=== PATIENT | female | born 1955 | race Caucasian/White ===

== ENCOUNTER → 2016-08-21 | Day surgery (SDC) | payer MEDICARE, MEDICAID ==
[~2016-08-21] MED LIST: BUPIVACAINE/EPINEPHRINE 0.5% 50 ML VIAL ONE; LACTATED RINGER'S 1000 ML INJ 1,000 ML ONE; LIDOCAINE 1%/EPINEPHrine 1:100,000 SOLN 20 ML VIAL ONE; MIDAZOLAM HCL 2 MG/2 ML VIAL ONE; NEOMYCIN/POLYMYXIN/BACITRACIN OINT 15 GM TUBE ONE; PNEU13P IM; PROPOFOL 200 MG/20 ML AMP IV ONE; ZITH250T PO; ZOSTINJ SQ
--- NOTE | 2016-08-21 12:52 | TN ---
cc: ALEYDA JACOBS M.D. DATE OF SURGERY: 08/21/2016 PREOPERATIVE DIAGNOSIS Right posterior thigh mass 1.5 cm. POSTOPERATIVE DIAGNOSIS Right posterior thigh mass 1.5 cm. PROCEDURE Excision of right posterior thigh mass. ANESTHESIA TIVA. SURGEON Dr. Jacobs. INDICATION This is a pleasant 60-year-old female who was noted to have a growing mass in the posterior thigh near an area where I took a lipoma out a few years back. Plans were made for above. PROCEDURE The patient was taken to the operating room and placed in the supine position. After anesthesia she was placed in the decubitus position exposing the area in question. We prepped the area with Betadine after under anesthesia. We had previously marked the area. We make an elliptical incision incorporating the old scar and the mass that had been marked. We make elliptical incision measuring 3 x 1 cm to completely remove the area in question and the scar from the previous surgery. The specimen is then passed off the field. Some other lipomatous tissue is palpated. The firm mass like structure appears to be calcified fat necrosis. After the area was cleaned we elevated the old scar as it was at a slight indentation, elevated this for closure to the medial aspect of the portion of the wound. The deep layer was then closed with a 3-0 Vicryl and skin is reapproximated with running 4-0 Vicryl. Steri-Strips were applied. Sterile bandage was applied. The patient tolerated the procedure well and had no immediate postop complications. MD BOOM Montalvo/TIFFANY /12:38 PM /12:44 PM
== END | disposition home or self-care (01) ==
LOC: ESDC 09:33
PROVIDERS: ATTEND Surgery
DX: R22.41 Localized swelling, mass and lump, right lower limb (principal)
CPT/HCPCS: 00400; 11402; 88305; J2250; J3010; J7120

== ENCOUNTER 2017-01-29 19:16 | Emergency (ER) | payer MEDICARE, MEDICAID ==
[~2017-01-29] VITALS: Ht 152.4 cm; Wt 61.8 kg
[~2017-01-29 19:16] MED LIST changes: -BUPIVACAINE/EPINEPHRINE 0.5% 50 ML VIAL ONE; -LACTATED RINGER'S 1000 ML INJ 1,000 ML ONE; -LIDOCAINE 1%/EPINEPHrine 1:100,000 SOLN 20 ML VIAL ONE; -MIDAZOLAM HCL 2 MG/2 ML VIAL ONE; -NEOMYCIN/POLYMYXIN/BACITRACIN OINT 15 GM TUBE ONE; -PROPOFOL 200 MG/20 ML AMP IV ONE
[2017-01-29 19:27] VITALS: BP 141/67; PULSE 80; RESP 16; TEMP 98.2; O2SAT 98
[2017-01-29] MEDS ORDERED: LISI10TA3 PO (19:41)
--- NOTE | 2017-01-29 19:42 | PD ---
HPI Chief Complaint: Pain: Acute or Chronic Time Seen by Provider: 19:39 Travel History International Travel<30 days: No Contact w/Intl Traveler<30days: No Traveled to known affect area: No History of Present Illness HPI 61-year-old female here for evaluation of a fracture of left distal radius that occurred in October this year. She was seen by the [facility] and diagnosed with a nonhealing radius fracture and referred to orthopedics for further treatment. She is concerned because she has limited range of motion of left forearm but denies numbness, tingling of the arm, altered sensation, or pain. She is having trouble getting an appointment with orthopedics but has been referred. 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 SKIN: Focused skin assessment warm/dry. HEAD: Normocephalic. EYES: No scleral icterus. No injection or drainage. NECK: Supple, trachea midline. No JVD or lymphadenopathy. GASTROINTESTINAL: Abdomen soft, non-tender, nondistended. MUSCULOSKELETAL: No cyanosis, or edema. Left arm: No tenderness to palpation of any portion of the arm and wrist. No edema or ecchymosis noted. Patient neurovascularly intact. BACK: Nontender without obvious deformity. No CVA tenderness. Data Data Last Documented VS Vital Signs Date Time Temp Pulse Resp B/P (MAP) Pulse Ox O2 Delivery O2 Flow Rate FiO2 01/29/17 19:27 98.2 80 16 141/67 (91) 98 MDM Medical Decision Making Medical Screen Exam Complete: Yes Emergency Medical Condition: No Differential Diagnosis Delayed healing Left wrist fracture Narrative Course 61-year-old female here for evaluation of her left wrist. States that she has been seen by [facility] but is having hard time getting into or through. He is concerned that there is something wrong with her wrist and this is why she came to the emergency department today. Physical exam revealed left elbow and wrist without deformities, crepitus, neurovascularly intact, denies pain with movement. Motor 5 out of 5. DTRs intact. She states that she does not have any pain with a physical exam and is only concerned that she cannot externally rotate her forearm as much as her right, otherwise has full range of motion of her left wrist and forearm. I explained to her in depth that she needs to see an hedis specialist for evaluation and treatment of her wrist and that we would not be up to do anything further for her today. A medical screening exam was performed: At the time of evaluation the presenting medical condition was determined not to be of an emergent nature. The patient was given the option of receiving additional care, but declined. Patient was given options for additional community resources from which to obtain care. The Patient Has Been advised to seek medical attention for their presenting complaint. The patient has been advised to return to the ER at any time if an emergent condition develops. Diagnosis Primary Impression: Encounter for medical screening examination Disposition: 01 DISCHARGE HOME Condition: Stable Brandie Rahman Jan 29, 2017 19:42
== END 2017-01-29 19:52 | disposition left against medical advice (07) ==
LOC: PHEFT 19:16
DX: S52.92XA Unspecified fracture of left forearm, initial encounter for closed fracture (principal); X58.XXXA Exposure to other specified factors, initial encounter
CPT/HCPCS: 99281

== ENCOUNTER 2018-04-08 19:18 | Observation (INO) ==
--- NOTE | 2018-04-08 19:31 | ED ---
HPI General Chief Complaint: Chest Pain Stated Complaint: Chest Pain Time Seen by Provider: 04/08/18 19:26 Source: patient Mode of arrival: ambulatory Limitations: no limitations History of Present Illness HPI narrative: 62-year-old female presents to the emergency department by private transportation for complaint of left-sided chest pain with achiness and heaviness. Patient states pain is severe 9/10 in intensity. Patient reports pain began approximately 4 PM. Patient states that she was sitting on the couch with onset of pain and applied a heating pad with some minimal relief she believes and took 2 full-strength aspirin at 5 PM. Patient states while she was on the couch she did fall asleep for a brief period of time and upon awakening noticed that the discomfort had lessened but was still present and then returned to 9/10 in intensity. No referred neck jaw back shoulder arm pain. Patient states that she has had discomfort in her back however since lifting heavy trash cans 2 days ago and felt that she wrenched her back at that time. Patient has had some shortness of breath no nausea no vomiting has episodic sweating associated with menopause. Patient does not report any abdominal pain or mid scapular pain or tearing pain. MD complaint: Reports chest pain STEMI Alert: No Onset (ago): hour(s) Time: 16:00 Duration: constant Onset: during rest and awoke with symptoms Pain location: Reports left chest Severity: severe Severity scale (1-10): 9 Quality: Reports tightness and aching Pain radiation: Reports none Relieving factors: nothing (except thinks heating pad may have helped briefly) Exacerbating factors: nothing Context: Reports trauma/injury (I wrenched my back lifting trash cans 2 days ago ); Denies recent illness, recent surgery, recent immobilization and recent travel Associated symptoms: Denies nausea, vomiting, diaphoresis, dyspnea, sense of impending doom, syncope, palpitations, fever, cough and leg swelling Treatments prior to arrival chest pain: Reports aspirin (650mg) Related Data On Oral Contraceptives: No Home Medications Medication Instructions Recorded Confirmed aspirin 162 mg PO DAILY 04/08/18 04/08/18 lisinopril 10 mg PO DAILY 04/08/18 04/08/18 Allergies Allergy/AdvReac Type Severity Reaction Status Date / Time naproxen AdvReac Severe Abdominal Verified 04/08/18 20:00 Pain Review of Systems ROS: all other systems reviewed are negative PMFSH History History Provided By: Patient (Hypertension abnormal EKG negative stress test 4 years ago) Social History Social History Substance History: No History of Abuse Smoking Status: Never smoker How Often Do You Have a Drink Containing Alcohol: 2 to 3 times a week Recent Travel in [facility] within the Last 8 Weeks: No Recent Out of Country Travel within the Last 8 Weeks: No Exam Narrative Exam Narrative: GENERAL: Well-nourished, well-developed patient. SKIN: Focused skin assessment warm/dry. HEAD: Normocephalic. EYES: No scleral icterus. No injection or drainage. NECK: Supple, trachea midline. No JVD or lymphadenopathy. CARDIOVASCULAR: Regular rate and rhythm without murmurs, gallops, or rubs. Radial dorsalis pedis pulses 2+ to palpation bilaterally. RESPIRATORY: Breath sounds equal bilaterally. No accessory muscle use. GASTROINTESTINAL: Abdomen soft, non-tender, nondistended. MUSCULOSKELETAL: No cyanosis, or edema. BACK: Nontender without obvious deformity. No CVA tenderness. Course Initial Documented Vital Signs Temperature 98.5 F 04/08/18 19:20 Pulse Rate 92 H 04/08/18 19:20 Respiratory Rate 22 04/08/18 19:20 Blood Pressure 180/90 H 04/08/18 19:20 Pulse Oximetry 98 04/08/18 19:20 Last Documented Vital Signs Temperature 98.5 F 04/08/18 19:20 Pulse Rate 78 04/08/18 21:02 Respiratory Rate 16 04/08/18 21:02 Blood Pressure 117/62 04/08/18 21:02 Pulse Oximetry 99 04/08/18 21:02 Medical Decision Making MDM Narrative Medical decision making narrative: 62-year-old female presents to the emergency room with heaviness in the left chest 9/10 intensity that worsens with deep inspiratory effort and some shortness of breath but does not report any specific sharp stabbing or grabbing pain complains of heavy onset after lifting heavy trash cans and wrenching his back no referred pain into her back. IV access obtained patient placed on security monitor with continuous pulse oximetry IV access obtained and specimens collected and sent for resulting patient has already taken aspirin and will be given nitroglycerin. At 8 PM after sublingual nitroglycerin heavy aching chest pain 9/10 in intensity has resolved and 0/10 in the sharp grabbing/stabbing chest pain 9/10 intensity has decreased to 4-5/10 in intensity and mostly noted only with deep breathing or twisting. Discussed with patient administering Toradol 30 mg IV but noted that she reported an allergy of abdominal discomfort or upset with Naprosyn. Patient states she is able to take ibuprofen/Advil/Motrin without adverse reaction. Patient also reports that at 8 AM today she took Aleve and had no adverse reaction. Patient was given Protonix 40 mg IV protectively as well as a one-time dose of Toradol 30 mg IV x1 dose. Patient is agreeable to this. D-dimer added to patient's regimen of medication as she now states that she has no personal history of clotting disorder but that her daughter does have history of blood clots. Troponin I is less than 0.02, not elevated At 850PM in view of pleuritic nature of the patient's sharp stabbing pain with movement or deep respiratory effort and family history of coagulopathy and elevated d-dimer will proceed with CTA pulmonary study to evaluate for PE. 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 This information has been shared with the patient. Patient rates her discomfort /pain sharp discomfort/pain 0/10 in intensity. Patient did receive a total of 3 sublingual nitroglycerin which resolved her dull discomfort and Toradol 30 mg IV which resolved her sharp stabbing discomfort. Plan will be to admit patient for serial cardiac enzymes and for further investigation of possible aortitis. Sed rate added at this time to patient's blood work. Call placed to medicine service for admission. Patient is aware of plan for admission and is agreeable. Discussed patient with Dr. Szymanski who will admit obvious admission to telemetry to [place] will enter orders. Discussed with Dr. 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 In view of infiltrate we will add lactic acid and blood cultures. Medical Screen Exam Complete: Yes Emergency Medical Condition: Yes Differential Diagnosis Differential Diagnosis: Chest pain, atypical chest pain, ACS, SD, aortic dissection, hypertensive urgency, PE, muscular skeletal pain Medical Records Medical records reviewed: Yes I reviewed the patient's medical records. Lab Data Result diagrams: 04/08/18 19:30 04/08/18 19:30 Lab Results 04/08/18 04/08/18 04/08/18 Range/Units 19:30 19:30 19:30 CBC w Diff Slide review pending WBC 8.6 (4.0-11.0) th/mm3 RBC 5.02 (4.00-5.30) mil/mm3 Hgb 14.6 (11.6-15.3) gm/dL Hct 44.1 (35.0-46.0) % MCV 87.8 (80.0-100.0) fL MCH 29.1 (27.0-34.0) pg MCHC 33.1 (32.0-36.0) % RDW 12.6 (11.6-17.2) % Plt Count 198 (150-450) th/mm3 MPV 8.0 (7.0-11.0) fL WBC Differential Manual diff final Seg Neuts % (Manual) 36 (16-70) % Lymphocytes % (Manual) 39 (9-44) % Monocytes % (Manual) 20 H (0-8) % Eosinophils % (Manual) 5 H (0-4) % Abs Neuts (Manual) 3.1 (1.8-7.7) th/mm3 Differential Comment . Platelet Estimate Normal (Normal) Platelet Morphology Normal (Normal) PT 9.8 (9.8-11.6) sec INR 1.0 Ratio APTT 28.7 (23.4-31.7) sec D-Dimer Quant (PE/DVT) (0.00-0.50) mg/L FEU Sodium 137 (136-145) meq/L Potassium 3.7 (3.5-5.1) meq/L Chloride 104 (98-107) meq/L Carbon Dioxide 23.9 (21.0-32.0) meq/L Anion Gap 9 (5-15) meq/L BUN 17 (7-18) mg/dL Creatinine 0.67 (0.50-1.00) mg/dL Estimated GFR 89 (>89) mL/min Random Glucose 120 H (74-106) mg/dL Calcium 8.3 L (8.5-10.1) mg/dL Magnesium (1.5-2.5) mg/dL Total Bilirubin 0.3 (0.2-1.0) mg/dL AST 22 (15-37) U/L ALT 20 (10-53) U/L Alkaline Phosphatase 109 (45-117) U/L Total Creatine Kinase (26-192) U/L Troponin I Less than 0.02 L (0.02-0.05) ng/mL Total Protein 7.9 (6.4-8.2) g/dL Albumin 3.5 (3.4-5.0) g/dL Lipase 161 (73-393) U/L 04/08/18 04/08/18 Range/Units 19:30 19:30 CBC w Diff WBC (4.0-11.0) th/mm3 RBC (4.00-5.30) mil/mm3 Hgb (11.6-15.3) gm/dL Hct (35.0-46.0) % MCV (80.0-100.0) fL MCH (27.0-34.0) pg MCHC (32.0-36.0) % RDW (11.6-17.2) % Plt Count (150-450) th/mm3 MPV (7.0-11.0) fL WBC Differential Seg Neuts % (Manual) (16-70) % Lymphocytes % (Manual) (9-44) % Monocytes % (Manual) (0-8) % Eosinophils % (Manual) (0-4) % Abs Neuts (Manual) (1.8-7.7) th/mm3 Differential Comment Platelet Estimate (Normal) Platelet Morphology (Normal) PT (9.8-11.6) sec INR Ratio APTT (23.4-31.7) sec D-Dimer Quant (PE/DVT) 0.68 H (0.00-0.50) mg/L FEU Sodium (136-145) meq/L Potassium (3.5-5.1) meq/L Chloride (98-107) meq/L Carbon Dioxide (21.0-32.0) meq/L Anion Gap (5-15) meq/L BUN (7-18) mg/dL Creatinine (0.50-1.00) mg/dL Estimated GFR (>89) mL/min Random Glucose (74-106) mg/dL Calcium (8.5-10.1) mg/dL Magnesium 2.4 (1.5-2.5) mg/dL Total Bilirubin (0.2-1.0) mg/dL AST (15-37) U/L ALT (10-53) U/L Alkaline Phosphatase (45-117) U/L Total Creatine Kinase 34 (26-192) U/L Troponin I (0.02-0.05) ng/mL Total Protein (6.4-8.2) g/dL Albumin (3.4-5.0) g/dL Lipase (73-393) U/L Imaging Data Radiologist's impression: Chest X-Ray 04/08/18 19:26 CONCLUSION: No acute cardiopulmonary disease. Chest CTA 04/08/18 20:52 CONCLUSION: 1. No pulmonary emboli. 2. Mild eccentric wall thickening involving the proximal descending aorta without aneurysmal change or dissection. 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 3. Left lower lobe infiltrate with tiny left effusion. 4. Small cluster of nonspecific pulmonary nodules involving the right lower lobe. Current Fleischner guidelines would suggest a follow-up CT of the thorax in 6-12 months. ECG Data EKG Prior to Arrival: No Attestation: I personally reviewed and interpreted this ECG as follows: (EKG: Normal sinus rhythm rate 92 poor R wave anteriorly with Q waves noted inferiorly age-indeterminate no noted ST elevation) Discharge Plan Discharge Disposition Patient Disposition: ED Admit(ED Internal Use Only) Discharge Order Discharge Orders: ED Use Only Admit Order (Routine); Ordered 04/08/18 Ordered By: Iovnne Cao Discharge Details Diagnosis: Chest pain, Aortitis, Infiltrate of lower lobe of left lung present on imaging study, Pulmonary nodule Physicians Team ED Provider: Ivonne Cao Primary Care Provider: UNKNOWN, Rxs /Orders / Referrals /Forms Prescriptions: No Action lisinopril 10 mg Tablet 10 mg PO DAILY RF: 0 aspirin 81 mg Tablet,Chewable 162 mg PO DAILY RF: 0 Discharge Instructions Patient Printed Instructions: Chest Pain (ED) Discharge Interventions Interventions: Vital Signs Last Done: 04/08/18 19:23 Status ED Status: With Doctor
[2018-04-08 19:40] LABS: Hematocrit 44.1 % (35.0-46.0); Hemoglobin 14.6 gm/dL (11.6-15.3); Mean Corpuscular HGB Conc 33.1 % (32.0-36.0); Mean Corpuscular Hemoglobin 29.1 pg (27.0-34.0); Mean Corpuscular Volume 87.8 fL (80.0-100.0); Platelet Count 198 th/mm3 (150-450); Red Blood Count 5.02 mil/mm3 (4.00-5.30); Red Cell Distribution Width 12.6 % (11.6-17.2); White Blood Count 8.6 th/mm3 (4.0-11.0)
[2018-04-08 19:46] LABS: Chloride 104 meq/L (98-107); Potassium 3.7 meq/L (3.5-5.1); Sodium 137 meq/L (136-145)
--- NOTE | 2018-04-08 19:47 | XR ---
EXAM DATE: 04/08/2018 7:42 PM EST AGE/SEX: 62 years / Female INDICATIONS: Short of breath, chest pain. CLINICAL DATA: This is the patient's initial encounter. Patient reports that signs and symptoms have been present for 1 day and indicates a pain score of 5/10. MEDICAL/SURGICAL HISTORY: None. None. COMPARISON: No prior exams available for comparison. FINDINGS: A single AP view of the chest demonstrates the lungs to be symmetrically aerated without evidence of mass, infiltrate or effusion. The cardiomediastinal contours are unremarkable. Osseous structures a re intact. Scoliotic curvature. CONCLUSION: No acute cardiopulmonary disease. Electronically signed by: Sanford Mills MD Board Certified Radiologist 04/08/2018 7:45 PM EST
[2018-04-08 19:49] LABS: Albumin 3.5 g/dL (3.4-5.0); Anion Gap 9 meq/L (5-15); Calcium 8.3 mg/dL (8.5-10.1); Carbon Dioxide 23.9 meq/L (21.0-32.0); Lipase 161 U/L (73-393)
[2018-04-08 19:50] LABS: Blood Urea Nitrogen 17 mg/dL (7-18); Glucose,Random 120 mg/dL (74-106); Magnesium 2.4 mg/dL (1.5-2.5)
[2018-04-08 19:53] LABS: Alanine Aminotransferase 20 U/L (10-53); Aspartate Aminotransferase 22 U/L (15-37); Glomerular Filtration Rate 89 mL/min (>89)
[2018-04-08 19:54] LABS: Total Protein 7.9 g/dL (6.4-8.2)
[2018-04-08 19:55] LABS: Alkaline Phosphatase 109 U/L (45-117)
[2018-04-08] MEDS ORDERED: Ketorolac Inj 30 MG/ML (IVP) Vial IV.PUSH ONE (20:06)
[2018-04-08] MEDS ORDERED: Pantoprazole Inj 40 MG Vial IV.PUSH ONE (20:06)
[2018-04-08 20:23] LABS: Eosinophils 5 % (0-4); Lymphocytes 39 % (9-44); Monocytes 20 % (0-8)
[2018-04-08 20:24] LABS: Platelet Estimate Normal (Normal); Platelet Morphology Normal (Normal)
[2018-04-08 20:28] LABS: Activated Partial Thrombo Time 28.7 sec (23.4-31.7); Prothrombin Time 9.8 sec (9.8-11.6)
--- NOTE | 2018-04-08 21:44 | CT ---
EXAM DATE: 04/08/2018 9:34 PM EST AGE/SEX: 62 years / Female INDICATIONS: Chest pain. CLINICAL DATA: This is the patient's initial encounter. Patient reports that signs and symptoms have been present for 1 day and indicates a pain score of 9/10. MEDICAL/SURGICAL HISTORY: None. None. RADIATION DOSE: 11.86 CTDI (mGy) COMPARISON: No prior exams available for comparison. TECHNIQUE: Volumetric scanning was performed using a multi-row detector CT scanner during bolus infu jessy of 100 ml Omnipaque 350 (iohexol) nonionic water-soluble contrast as a single exam dose. The da ta was post processed with a variety of visualization algorithms including full volume maximum intens ity projection and sliding thin slab reformation. Using automated exposure control and adjustment of the mA and/or kV according to patient size, radiation dose was kept as low as reasonably achievable t o obtain optimal diagnostic quality images. DICOM format image data is available electronically for review and comparison. FINDINGS: Pulmonary Arteries: No filling defects are seen in the pulmonary arteries out to the subsegmental ve ssels. The left and right pulmonary arteries are normal in diameter. Lung: There is a groundglass density involving the posterior basilar segment of the left lower lobe. Mild atelectasis within the right lung base. A small cluster of nonspecific noncalcified pulmonary n odules seen within the superior segment of the right lower lobe near the hilum. The largest nodule me asures 6 mm.. Effusion: There is a tiny smooth pleural thickening seen anteriorly involving the left hemithorax. L eft effusion.. Mediastinum: Scattered calcified and noncalcified atheromatous plaque throughout a nonaneurysmal tho racic aorta. There is a focal area of eccentric wall thickening involving the proximal descending aor ta just distal to the left subclavian artery origin. The density is less than that of blood. Heart is normal in size without pericardial effusion.. Other: The axilla is unremarkable. Small cyst involving segment 3 of the liver. A degenerative thora cic spine. CONCLUSION: 1. No pulmonary emboli. 2. Mild eccentric wall thickening involving the proximal descending aorta without aneurysmal change or dissection. 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 3. Left lower lobe infiltrate with tiny left effusion. 4. Small cluster of nonspecific pulmonary nodules involving the right lower lobe. Current Fleischner guidelines would suggest a follow-up CT of the thorax in 6-12 months. Electronically signed by: Sanford Mills MD Board Certified Radiologist 04/08/2018 9:43 PM EST
[2018-04-08] MEDS ORDERED: Acetaminophen 325 MG Tablet PO PRN (22:20)
[2018-04-08] MEDS ORDERED: Bisacodyl 10 MG Supp RECTAL PRN (22:20)
[2018-04-09] MEDS: Sod Chloride 0.9% Inj 1,000 ML IV.CONT SCH ×2 (00:11→15:20)
[2018-04-09 02:53] LABS: Creatine Kinase 23 U/L (26-192)
[2018-04-09] MEDS: Senna/Docusate Sodium 8.6/50 MG Tablet PO SCH ×2 (08:41→21:29)
[2018-04-09 09:10] LABS: Hematocrit 39.9 % (35.0-46.0); Hemoglobin 13.1 gm/dL (11.6-15.3); Mean Corpuscular Hemoglobin 29.1 pg (27.0-34.0); Mean Corpuscular Volume 88.3 fL (80.0-100.0); Mean Platelet Volume 8.1 fL (7.0-11.0); Platelet Count 163 th/mm3 (150-450); Red Blood Count 4.52 mil/mm3 (4.00-5.30); Red Cell Distribution Width 12.6 % (11.6-17.2); White Blood Count 5.8 th/mm3 (4.0-11.0)
[2018-04-09 09:12] LABS: Chloride 110 meq/L (98-107); Potassium 3.8 meq/L (3.5-5.1); Sodium 141 meq/L (136-145)
[2018-04-09 09:15] LABS: Calcium 7.7 mg/dL (8.5-10.1)
[2018-04-09 09:16] LABS: Anion Gap 8 meq/L (5-15); Blood Urea Nitrogen 10 mg/dL (7-18); Carbon Dioxide 22.7 meq/L (21.0-32.0); Glucose,Random 83 mg/dL (74-106)
[2018-04-09 09:19] LABS: Glomerular Filtration Rate Greater Than 89 mL/min (>89)
[2018-04-09 09:22] LABS: Creatine Kinase 20 U/L (26-192)
[2018-04-09] MEDS: Azithromycin Inj 500 MG in Sodium Chlor 0.9% Inj 250 ML IV.SIG SCH (10:00)
[2018-04-09 10:17] LABS: Lymphocytes 29 % (9-44); Monocytes 24 % (0-8); Platelet Estimate Normal (Normal); Platelet Morphology Normal (Normal)
--- NOTE | 2018-04-09 10:28 | P.HPIM ---
History of Present Illness Primary Care Physician: UNKNOWN [facility] Social History Social History Substance History: No History of Abuse Second Hand Smoke Exposure: Yes Smoking Status: Never smoker How Often Do You Have a Drink Containing Alcohol: 2 to 3 times a week Recent Travel in [facility] within the Last 8 Weeks: No Recent Out of Country Travel within the Last 8 Weeks: No Immunization History Tetanus Immunization: Unsure Medications and Allergies Allergies Allergy/AdvReac Type Severity Reaction Status Date / Time naproxen AdvReac Severe Abdominal Verified 04/08/18 20:00 Pain Home Medications Medication Instructions Recorded Confirmed Type aspirin 162 mg PO DAILY 04/08/18 04/08/18 History lisinopril 10 mg PO DAILY 04/08/18 04/08/18 History Active Medications: Active Medications Acetaminophen (Tylenol) 650 mg PO Q4H PRN PRN Reason: Temp > 100.4 Al Hydroxide/Mg Hydroxide (Milk Of Magnesia Liq) 30 ml PO Q12H PRN PRN Reason: Mild Constipation Bisacodyl (Dulcolax Supp) 10 mg RECTAL DAILY PRN PRN Reason: SEVERE CONSITIPATION Sodium Chloride (Ns Inj) 1,000 mls @ 70 mls/hr IV.CONT .[id number] [facility] Last Admin: 04/09/18 00:11 Dose: 70 mls/hr Azithromycin 500 mg/ Sodium (Chloride) 250 mls @ 250 mls/hr IV.SIG Q24H [facility] Last Admin: 04/09/18 10:00 Dose: 250 mls/hr Ceftriaxone Sodium 1,000 mg/ (Sodium Chloride) 100 mls @ 200 mls/hr IV.SIG Q24H [facility] Last Infusion: 04/09/18 09:45 Dose: Infused Lactulose (Lactulose Liq) 30 ml PO DAILY PRN PRN Reason: SEVERE CONSITIPATION Ondansetron HCl (Zofran Inj) 4 mg IV.PUSH Q6H PRN PRN Reason: NAUSEA OR VOMITING Senna/Docusate Sodium (Teri-Colace) 1 tab PO BID [facility] Last Admin: 04/09/18 08:41 Dose: 1 tab Sennosides (Senokot) 17.2 mg PO Q12H PRN PRN Reason: Moderate Constipation Sodium Chloride (Ns Flush) 2 ml IV.FLUSH UNSCH PRN PRN Reason: FLUSH AFTER USING IV ACCESS Sodium Chloride (Ns Flush) 2 ml IV.FLUSH BID [facility] Last Admin: 04/09/18 08:41 Dose: 2 ml Sodium Chloride (Ns Flush) 2 ml IV.FLUSH PRN PRN PRN Reason: FLUSH AFTER USING IV ACCESS Physical Exam Vital signs: Last Vital Signs Temp 96.6 F L 04/09/18 08:00 Pulse 70 04/09/18 08:00 Resp 16 04/09/18 08:00 BP 144/70 H 04/09/18 08:00 Pulse Ox 95 04/09/18 08:00 Intake & Output 04/07/18 04/08/18 04/09/18 04/10/18 06:59 06:59 06:59 06:59 Intake Total 240 / 240 100 / 100 Balance 240 / 240 100 / 100 Weight 61.5 kg Results Labs CBC & Chem 7: 04/09/18 08:15 04/09/18 08:15 Imaging Impressions Chest X-Ray 04/08/18 19:26 CONCLUSION: No acute cardiopulmonary disease. Chest CTA 04/08/18 20:52 CONCLUSION: 1. No pulmonary emboli. 2. Mild eccentric wall thickening involving the proximal descending aorta without aneurysmal change or dissection. 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 3. Left lower lobe infiltrate with tiny left effusion. 4. Small cluster of nonspecific pulmonary nodules involving the right lower lobe. Current Fleischner guidelines would suggest a follow-up CT of the thorax in 6-12 months. Caprini VTE Risk Assessment Caprini Risk Assessment Model: Point Value = 1 Point Value = 2 Point Value = 3 Point Value = 5 Age 41-60 Minor surgery BMI > 25 kg/m2 Swollen legs Varicose veins or History of unexplained or recurrent spontaneous Oral contraceptives or hormone replacement Sepsis (< 1 month) Serious lung disease, including pneumonia (< 1 month) Abnormal pulmonary function Acute myocardial infarction Congestive heart failure (< 1 month) History of inflammatory bowel disease Medical patient at bed rest Age 61-74 Arthroscopic surgery Major open surgery (> 45 min) Laparoscopic surgery (> 45 min) Malignancy Confined to bed (> 72 hours) Immobilizing plaster cast Central venous access Age >= 75 History of VTE Family history of VTE Factor V Leiden Prothrombin [id number] Lupus anticoagulant Anticardiolipin antibodies Elevated serum homocysteine Heparin-induced thrombocytopenia Other congenital or acquired thrombophilia Stroke (< 1 month) Elective arthroplasty Hip, pelvis, or leg fracture Acute spinal cord injury (< 1 month) Prophylaxis Regimen: Total Risk Factor Score Risk Level Prophylaxis Regimen 0-1 Low Early ambulation 2 Moderate Order ONE of the following: *Sequential Compression Device (SCD) *Heparin 5000 units SQ BID 3-4 Higher Order ONE of the following medications: *Heparin 5000 units SQ TID *Enoxaparin/Lovenox 40 mg SQ daily (WT < 150 kg, CrCl > 30 mL/min) *Enoxaparin/Lovenox 30 mg SQ daily (WT < 150 kg, CrCl > 10-29 mL/min) *Enoxaparin/Lovenox 30 mg SQ BID (WT < 150 kg, CrCl > 30 mL/min) AND/OR *Sequential Compression Device (SCD) 5 or more Highest Order ONE of the following medications: *Heparin 5000 units SQ TID (Preferred with Epidurals) *Enoxaparin/Lovenox 40 mg SQ daily (WT < 150 kg, CrCl > 30 mL/min) *Enoxaparin/Lovenox 30 mg SQ daily (WT < 150 kg, CrCl > 10-29 mL/min) *Enoxaparin/Lovenox 30 mg SQ BID (WT < 150 kg, CrCl > 30 mL/min) AND *Sequential Compression Device (SCD) H&P: Quality VTE Deep Vein Thrombosis/Pulmonary Embolism Present on Admission: No
--- NOTE | 2018-04-09 15:21 | P.HPIM ---
History of Present Illness Service: 62 yo F with h/o hypertension who presented to ER c/o left sided chest pain x4 days. Chest pain said to be sharp, worsened on breathing,especially deep breathing, not associated with exertion. No associated cough,rhinorrhea or congestion. No fever,chills,joint pains or flu like symptoms. No sick contacts. ROS is negative. On presentation to ER, patient had stable vitals mildly tachycardic. labs were unremarkable except for elevated CRP 1.79. negative troponin. ECG without acute findings. CXR without acute findings hence CTA chest done, PE ruled out, but LLL infiltrate with tiny left pleural effusion was noted. Patient was admitted to the med surg floor for chest pain. Primary Care Physician: UNKNOWN Review of Systems Review of Systems: all other systems reviewed are negative [facility] Medical History Medical History Hypertension (Acute) Social History Social History Substance History: No History of Abuse Second Hand Smoke Exposure: Yes Smoking Status: Never smoker How Often Do You Have a Drink Containing Alcohol: 2 to 3 times a week Recent Travel in [facility] within the Last 8 Weeks: No Recent Out of Country Travel within the Last 8 Weeks: No Immunization History Tetanus Immunization: Unsure Medications and Allergies Allergies Allergy/AdvReac Type Severity Reaction Status Date / Time naproxen AdvReac Severe Abdominal Verified 04/08/18 20:00 Pain Home Medications Medication Instructions Recorded Confirmed Type aspirin 162 mg PO DAILY 04/08/18 04/08/18 History lisinopril 10 mg PO DAILY 04/08/18 04/08/18 History Active Medications: Active Medications Acetaminophen (Tylenol) 650 mg PO Q4H PRN PRN Reason: Temp > 100.4 Al Hydroxide/Mg Hydroxide (Milk Of Magnesia Liq) 30 ml PO Q12H PRN PRN Reason: Mild Constipation Bisacodyl (Dulcolax Supp) 10 mg RECTAL DAILY PRN PRN Reason: SEVERE CONSITIPATION Sodium Chloride (Ns Inj) 1,000 mls @ 70 mls/hr IV.CONT .[id number] [facility] Last Admin: 04/09/18 00:11 Dose: 70 mls/hr Azithromycin 500 mg/ Sodium (Chloride) 250 mls @ 250 mls/hr IV.SIG Q24H [facility] Last Infusion: 04/09/18 11:00 Dose: Infused Ceftriaxone Sodium 1,000 mg/ (Sodium Chloride) 100 mls @ 200 mls/hr IV.SIG Q24H [facility] Last Infusion: 04/09/18 09:45 Dose: Infused Lactulose (Lactulose Liq) 30 ml PO DAILY PRN PRN Reason: SEVERE CONSITIPATION Ondansetron HCl (Zofran Inj) 4 mg IV.PUSH Q6H PRN PRN Reason: NAUSEA OR VOMITING Senna/Docusate Sodium (Teri-Colace) 1 tab PO BID [facility] Last Admin: 04/09/18 08:41 Dose: 1 tab Sennosides (Senokot) 17.2 mg PO Q12H PRN PRN Reason: Moderate Constipation Sodium Chloride (Ns Flush) 2 ml IV.FLUSH UNSCH PRN PRN Reason: FLUSH AFTER USING IV ACCESS Sodium Chloride (Ns Flush) 2 ml IV.FLUSH BID [facility] Last Admin: 04/09/18 08:41 Dose: 2 ml Sodium Chloride (Ns Flush) 2 ml IV.FLUSH PRN PRN PRN Reason: FLUSH AFTER USING IV ACCESS Physical Exam Vital signs: Last Vital Signs Temp 97.0 F L 04/09/18 12:00 Pulse 76 04/09/18 12:00 Resp 17 04/09/18 12:00 BP 158/74 H 04/09/18 12:00 Pulse Ox 96 04/09/18 12:00 Intake & Output 04/07/18 04/08/18 04/09/18 04/10/18 06:59 06:59 06:59 06:59 Intake Total 240 / 240 350 / 350 Balance 240 / 240 350 / 350 Weight 61.5 kg Narrative: GENERAL: middle aged lady in no distress. HEENT:not pale,anicteric, acyanotic CARDIOVASCULAR: Regular rate and rhythm without murmurs, gallops, or rubs. RESPIRATORY: LLL dull to percussion,with scattered rales, the other lung mejia clear to auscultation. No wheezes, or rhonchi. GASTROINTESTINAL: Abdomen soft, non-tender, nondistended. Normal active bowel sounds MUSCULOSKELETAL: Extremities without clubbing, cyanosis, or edema. NEURO: Alert & Oriented x4 to person, place, time, situation. Moves all ext x4 Results Labs CBC & Chem 7: 04/09/18 08:15 04/09/18 08:15 Imaging Impressions Chest X-Ray 04/08/18 19:26 CONCLUSION: No acute cardiopulmonary disease. Chest CTA 04/08/18 20:52 CONCLUSION: 1. No pulmonary emboli. 2. Mild eccentric wall thickening involving the proximal descending aorta without aneurysmal change or dissection. 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 3. Left lower lobe infiltrate with tiny left effusion. 4. Small cluster of nonspecific pulmonary nodules involving the right lower lobe. Current Fleischner guidelines would suggest a follow-up CT of the thorax in 6-12 months. Caprini VTE Risk Assessment Caprini VTE Risk Assessment: No/Low Risk (score <= 1) Caprini Risk Assessment Model: Point Value = 1 Point Value = 2 Point Value = 3 Point Value = 5 Age 41-60 Minor surgery BMI > 25 kg/m2 Swollen legs Varicose veins or History of unexplained or recurrent spontaneous Oral contraceptives or hormone replacement Sepsis (< 1 month) Serious lung disease, including pneumonia (< 1 month) Abnormal pulmonary function Acute myocardial infarction Congestive heart failure (< 1 month) History of inflammatory bowel disease Medical patient at bed rest Age 61-74 Arthroscopic surgery Major open surgery (> 45 min) Laparoscopic surgery (> 45 min) Malignancy Confined to bed (> 72 hours) Immobilizing plaster cast Central venous access Age >= 75 History of VTE Family history of VTE Factor V Leiden Prothrombin [id number] Lupus anticoagulant Anticardiolipin antibodies Elevated serum homocysteine Heparin-induced thrombocytopenia Other congenital or acquired thrombophilia Stroke (< 1 month) Elective arthroplasty Hip, pelvis, or leg fracture Acute spinal cord injury (< 1 month) Prophylaxis Regimen: Total Risk Factor Score Risk Level Prophylaxis Regimen 0-1 Low Early ambulation 2 Moderate Order ONE of the following: *Sequential Compression Device (SCD) *Heparin 5000 units SQ BID 3-4 Higher Order ONE of the following medications: *Heparin 5000 units SQ TID *Enoxaparin/Lovenox 40 mg SQ daily (WT < 150 kg, CrCl > 30 mL/min) *Enoxaparin/Lovenox 30 mg SQ daily (WT < 150 kg, CrCl > 10-29 mL/min) *Enoxaparin/Lovenox 30 mg SQ BID (WT < 150 kg, CrCl > 30 mL/min) AND/OR *Sequential Compression Device (SCD) 5 or more Highest Order ONE of the following medications: *Heparin 5000 units SQ TID (Preferred with Epidurals) *Enoxaparin/Lovenox 40 mg SQ daily (WT < 150 kg, CrCl > 30 mL/min) *Enoxaparin/Lovenox 30 mg SQ daily (WT < 150 kg, CrCl > 10-29 mL/min) *Enoxaparin/Lovenox 30 mg SQ BID (WT < 150 kg, CrCl > 30 mL/min) AND *Sequential Compression Device (SCD) Assessment and Plan Plan 62 yo F with h/o HTN who presented with left sided pleuritic chest pain. Physical and CT chest findings in keeping with pneumonia. 1.LLL pneumonia- Infiltrate on LLL on CT chest, pleuritic chest pain. Check urine strep/legionella. Started on Azithromycin,Ceftriaxone. prn pain control. 2.Incidental findings on CT chest -mild eccentric thickening of proximal descending aorta concerning for mild aortitis--unclear significance,will monitor. -non specific RLL pulmonary nodules--repeat CT in 6-12 months. HTN- BP slightly elevated, continue Lisinopril. DVT ppx-low risk. H&P: Quality VTE Deep Vein Thrombosis/Pulmonary Embolism Present on Admission: No
--- NOTE | 2018-04-09 15:42 | ECG ---
Date Performed: 04/08/2018 Time Performed: 19:23:27 PTAGE: 62 years EKG: Sinus rhythm INFERIOR WALL MYOCARDIAL INFARCTION, OF UNDETERMINED AGE POOR R-WAVE PROGRESSION ACROSS THE PRECORDI UM, WHICH MAY BE NORMAL VARIANT ABNORMAL ECG NO PREVIOUS TRACING DOCTOR: Jelani Cali Interpretating Date/Time 04/09/2018 15:42:26
--- NOTE | 2018-04-09 15:44 | ECG ---
Date Performed: 04/09/2018 Time Performed: 01:23:01 PTAGE: 62 years EKG: Sinus rhythm LOW QRS VOLTAGE IN PRECORDIAL LEADS INFERIOR MYOCARDIAL INFARCTION ABNORMAL ECG Compared to PREVIOUS TRACING , R-wave progression slightly improved across the precordium, otherwise no signficant change. PREVIOUS TRACIN04/08/2018 19.23 DOCTOR: Jelani Cali Interpretating Date/Time 04/09/2018 15:42:59
--- NOTE | 2018-04-09 15:45 | ECG ---
Date Performed: 04/09/2018 Time Performed: 08:19:12 PTAGE: 62 years EKG: Sinus rhythm INFERIOR MYOCARDIAL INFARCTION ABNORMAL ECG Since PREVIOUS TRACING , no significant change noted PREVIOUS TRACIN04/09/2018 01.23 DOCTOR: Jelani Cali Interpretating Date/Time 04/09/2018 15:43:13
[2018-04-10] MEDS: Sod Chloride 0.9% Inj 1,000 ML IV.CONT SCH (04:44)
[2018-04-10 09:31] VITALS: BP 166/77; PULSE 71; RESP 17; TEMP 98.2; O2SAT 94
--- NOTE | 2018-04-10 09:47 | P.DS ---
DS: Providers Date of admission: 04/08/18 22:22 Primary care physician: UNKNOWN DS: Diagnosis Discharge Diagnosis (1) Infiltrate of lower lobe of left lung present on imaging study: Status: Acute (2) Pulmonary nodule: Status: Acute (3) Aortitis: Status: Acute (4) Pneumonia: Status: Acute DS: Summary 62 yo F with h/o hypertension who presented to ER c/o left sided chest pain x4 days. Chest pain said to be sharp, worsened on breathing,especially deep breathing, not associated with exertion. No associated cough,rhinorrhea or congestion. No fever,chills,joint pains or flu like symptoms. No sick contacts. ROS is negative. On presentation to ER, patient had stable vitals mildly tachycardic. labs were unremarkable except for elevated CRP 1.79. negative troponin. ECG without acute findings. CXR without acute findings hence CTA chest done, PE ruled out, but LLL infiltrate with tiny left pleural effusion was noted. Patient was admitted [facility] floor for chest pain. ISSUES ADDRESSED DURING THIS HOSPITALIZATION: 1.LLL pneumonia- Infiltrate on LLL on CT chest, pleuritic chest pain. small lt pleural effusion likely para pneumonic, anticipate it will subside with treatment. urine strep/legionella both negative. blood cultures were negative at 24 hours. Started on Azithromycin,Ceftriaxone on admission, her pleuritic chest pain had subsided by the time of discharge.She will be discharged on oral Levofloxacin. 2.Incidental findings on CT chest -mild eccentric thickening of proximal descending aorta concerning for mild aortitis--unclear significance,will need follow up. -non specific RLL pulmonary nodules--repeat CT in 6-12 months. Patient has been advised to follow up with her PCP within 1 week. Time Spent with Patient Total time spent providing and/or coordinating discharge services: Quality: VTE Deep Vein Thrombosis/Pulmonary Embolism Present on Admission: No Exam Narrative Exam Narrative: GENERAL: middle aged lady in no distress. HEENT:not pale,anicteric, acyanotic CARDIOVASCULAR: Regular rate and rhythm without murmurs, gallops, or rubs. RESPIRATORY: LLL dull to percussion and with reduced air entry, the other lung mejia clear to auscultation. No wheezes, or rhonchi. GASTROINTESTINAL: Abdomen soft, non-tender, nondistended. Normal active bowel sounds MUSCULOSKELETAL: Extremities without clubbing, cyanosis, or edema. NEURO: Alert & Oriented x4 to person, place, time, situation. Moves all ext x4 Results Labs on day of discharge: Labs from last 24 hours 04/09/18 08:15 WBC Differential Manual diff final Seg Neuts % (Manual) 47 Lymphocytes % (Manual) 29 Monocytes % (Manual) 24 H Abs Neuts (Manual) 2.7 Platelet Estimate Normal Platelet Morphology Normal Preliminary micro results at discharge 04/08/18 22:50 Aerobic Blood Culture - Preliminary Blood - Peripheral No growth in 1 day Anaerobic Blood Culture - Preliminary No growth in 1 day 04/08/18 22:40 Aerobic Blood Culture - Preliminary Blood - Peripheral No growth in 1 day Anaerobic Blood Culture - Preliminary No growth in 1 day Impressions ITS Impressions Chest X-Ray 04/08/18 19:26 CONCLUSION: No acute cardiopulmonary disease. Chest CTA 04/08/18 20:52 CONCLUSION: 1. No pulmonary emboli. 2. Mild eccentric wall thickening involving the proximal descending aorta without aneurysmal change or dissection. 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 3. Left lower lobe infiltrate with tiny left effusion. 4. Small cluster of nonspecific pulmonary nodules involving the right lower lobe. Current Fleischner guidelines would suggest a follow-up CT of the thorax in 6-12 months. Discharge Plan Discharge Details Anticipated Discharge Date: 04/10/18 Physicians Team Primary Care Provider: UNKNOWN, Attending Provider: Jomar Britton Rxs /Orders / Referrals /Forms Prescriptions: New levofloxacin 750 mg tablet 750 mg PO Q24H 7 Days Qty: 7 RF: 0 Continue lisinopril 10 mg Tablet 10 mg PO DAILY RF: 0 aspirin 81 mg Tablet,Chewable 162 mg PO DAILY RF: 0 Referrals: UNKNOWN, [Primary Care Provider] - See Instructions Discharge Instructions Patient Printed Instructions: Chest Pain (ED) Status ED Status: Left Department
[2018-04-10] MEDS: Azithromycin Inj 500 MG in Sodium Chlor 0.9% Inj 250 ML IV.SIG SCH (10:01)
[2018-04-10] MEDS: Senna/Docusate Sodium 8.6/50 MG Tablet PO SCH (10:02)
== END 2018-04-10 12:15 | disposition home or self-care (01) ==
LOC: PHED 19:18 → PHEDA 19:18 → PH3 23:45
PROVIDERS: ADMIT Hospitalist; ATTEND Hospitalist